=== PATIENT | male | born 1995 | race Caucasian/White ===

== ENCOUNTER 2022-06-25 05:40 | Observation (INO) | payer SELFPAY ==
[~2022-06-25] VITALS: Ht 162.6 cm; Wt 102.1 kg
[2022-06-25] MEDS ORDERED: SODIUM CHLORIDE FLUSH 10 ML SYR IV PRN (05:45)
[2022-06-25 06:11] LABS: BASOPHILS # (AUTO) 0.1 (0.0-0.1); EOSINOPHILS # (AUTO) 0.8 (0.0-0.4); EOSINOPHILS % 6.1 % (0.0-6.0); HEMATOCRIT 46.7 % (38.2-49.6); HEMOGLOBIN 15.8 g/dL (14.0-18.0); LYMPHOCYTES # (AUTO) 3.5 (1.0-3.2); LYMPHOCYTES % 27.6 % (18.0-39.1); MEAN CORPUSCULAR HEMOGLOBIN 30.6 pg (28-32); MEAN CORPUSCULAR HGB CONC 33.8 g/dL (31-35); MEAN CORPUSCULAR VOLUME 90.3 fL (81-99); MONOCYTES % 8.1 % (4.4-11.3); NEUTROPHILS # (AUTO) 7.1 (2.1-6.9); NEUTROPHILS % 56.8 % (38.7-80.0); PLATELET COUNT 318 x10e3/uL (140-360); RED BLOOD COUNT 5.17 x10e6/uL (4.3-5.7); RED CELL DISTRIBUTION WIDTH 12.8 % (11.7-14.4)
[2022-06-25] MEDS ORDERED: ONDANSETRON HCL INJ 2MG/ML 2ML 2 MG/ML VIAL IV STA (06:18)
[2022-06-25 06:27] LABS: CLARITY,URINE CLOUDY (CLEAR); COLOR,URINE YELLOW (YELLOW); KETONES,URINE NEGATIVE (NEGATIVE); LEUKOCYTE ESTERASE ,URINE SMALL (NEGATIVE); NITRITE,URINE NEGATIVE (NEGATIVE); PROTEIN,URINE DIPSTICK TRACE (NEGATIVE)
[2022-06-25 06:28] LABS: AMPHETAMINES SCREEN,URINE NEGATIVE (NEGATIVE); BENZODIAZEPINES SCREEN,URINE NEGATIVE (NEGATIVE); PHENCYCLIDINE SCREEN,URINE NEGATIVE (NEGATIVE); URINE UROBILINOGEN 0.2 mg/dL (0.2 - 1)
[2022-06-25 06:30] LABS: INR 0.88; PROTHROMBIN TIME 12.4 seconds (11.9-14.5)
[2022-06-25] MEDS ORDERED: Morphine 4mg INJECTION 4 MG/ML INJ IV ONE (06:30)
[2022-06-25 06:31] LABS: PARTIAL THROMBOPLASTIN TIME 29.3 seconds (23.8-35.5)
[2022-06-25 06:37] LABS: ALBUMIN 3.9 g/dL (3.5-5.0); ANION GAP 17.8 mmol/L (8-16); CALCIUM 9.3 mg/dL (8.4-10.2); CREATININE, SERUM 0.94 mg/dL (0.72-1.25); POTASSIUM 3.8 mmol/L (3.5-5.1)
[2022-06-25 06:48] LABS: BACTERIA,URINE MANY /HPF; EPITHELIAL CELLS,URINE MANY /LPF; RBC,URINE 0-5 /HPF (0-5); WBC,URINE (MAN) >50 /HPF (0-5)
[2022-06-25] MEDS ORDERED: ONDANSETRON HCL INJ 2MG/ML 2ML 2 MG/ML VIAL ONE (09:05)
[2022-06-25] MEDS ORDERED: NEOSTIGMINE 1 MG/ML 10ML VIAL ONE (09:05)
[2022-06-25] MEDS ORDERED: POVIDONE IODINE 0.05% 0.05 % ML PO ONE (09:05)
[2022-06-25] MEDS ORDERED: SUCCINYLCHOLINE CHLORIDE 20 MG/ML 10ML VIAL ONE (09:05)
[2022-06-25] MEDS ORDERED: DEXAMETHASONE SOD PHOS INJ 4 MG/ML SDV ONE (09:05)
[2022-06-25] MEDS ORDERED: SEVOFLURANE INHAL SOLN 250 ML PEN BTL ONE (09:05)
[2022-06-25] MEDS ORDERED: CEFTRIAXONE 1 GM VIAL IV ONE (10:45)
[2022-06-25] MEDS ORDERED: SODIUM CHLORIDE 0.9% 1000ML 1,000 ML IV SCH (11:30)
[2022-06-25] MEDS: Morphine 2mg Syringe 2 MG/ML SYR IV PRN ×3 (11:55→23:12)
[2022-06-25] MEDS ORDERED: METRONIDAZOLE 500MG/NS 100ML 100 ML IV ONE ×2 (12:00→17:30)
[2022-06-25] MEDS ORDERED: ROCURONIUM BROMIDE 10 MG/ML 5ML VIAL IV ONE (12:37)
[2022-06-25] MEDS ORDERED: ESMOLOL HCL 100MG/10ML 10 MG/ML VIAL ONE (12:37)
[2022-06-25] MEDS ORDERED: LIDOCAINE HCL 2% LOCAL INJ 5 ML SDV VIAL INJ ONE (12:37)
[2022-06-25] MEDS ORDERED: PROPOFOL IV EMULSION 10 MG/ML 20 ML VIAL ONE (12:37)
[2022-06-25] MEDS ORDERED: FENTANYL CITRATE/PF 100MCG/2 ML INJ ONE (13:30)
[2022-06-25] MEDS ORDERED: MIDAZOLAM HCL 2 MG/2 ML VIAL ONE (13:30)
[2022-06-25] MEDS ORDERED: ONDANSETRON HCL INJ 2MG/ML 2ML 2 MG/ML VIAL IV PRN (17:30)
[2022-06-25] MEDS ORDERED: ACETAMINOPHEN 325 MG TAB PO PRN (17:30)
[2022-06-25 19:24] VITALS: BP 139/93
[2022-06-25 19:27] VITALS: BP 139/93
[2022-06-25 19:33] VITALS: BP 139/93
[2022-06-25] MEDS: SODIUM CHLORIDE 0.9% 1000ML 1,000 ML IV SCH (19:46)
[2022-06-25 19:59] VITALS: BP 139/93
[2022-06-25] MEDS: ONDANSETRON HCL INJ 2MG/ML 2ML 2 MG/ML VIAL IV PRN (23:12)
[2022-06-25] MEDS ORDERED: TESTOSTERONE SQ (23:52)
[2022-06-25] MEDS ORDERED: IBUPROFEN200 MG PO (23:53)
[2022-06-26 00:13] VITALS: BP 150/77
[2022-06-26] MEDS: ONDANSETRON HCL INJ 2MG/ML 2ML 2 MG/ML VIAL IV PRN ×2 (05:14→10:12)
[2022-06-26] MEDS: Morphine 2mg Syringe 2 MG/ML SYR IV PRN ×2 (05:17→10:14)
[2022-06-26 05:18] VITALS: BP 121/76
[2022-06-26] MEDS: SODIUM CHLORIDE 0.9% 1000ML 1,000 ML IV SCH ×3 (05:19→21:22)
[2022-06-26 06:08] LABS: BASOPHILS # (AUTO) 0.1 (0.0-0.1); BASOPHILS % 0.4 % (0.0-1.0); EOSINOPHILS # (AUTO) 0.3 (0.0-0.4); EOSINOPHILS % 1.2 % (0.0-6.0); HEMATOCRIT 44.3 % (38.2-49.6); LYMPHOCYTES # (AUTO) 2.3 (1.0-3.2); LYMPHOCYTES % 11.2 % (18.0-39.1); MEAN CORPUSCULAR HEMOGLOBIN 30.2 pg (28-32); MEAN CORPUSCULAR HGB CONC 33.9 g/dL (31-35); MEAN CORPUSCULAR VOLUME 89.3 fL (81-99); MONOCYTES % 9.5 % (4.4-11.3); NEUTROPHILS # (AUTO) 15.9 (2.1-6.9); NEUTROPHILS % 77.3 % (38.7-80.0); PLATELET COUNT 301 x10e3/uL (140-360); RED BLOOD COUNT 4.96 x10e6/uL (4.3-5.7); RED CELL DISTRIBUTION WIDTH 12.9 % (11.7-14.4)
[2022-06-26 06:41] LABS: ALBUMIN 3.4 g/dL (3.5-5.0); ALBUMIN/GLOBULIN RATIO 0.9 (0.8-2.0); ANION GAP 15.5 mmol/L (8-16); CALCIUM 9.2 mg/dL (8.4-10.2); CREATININE, SERUM 0.75 mg/dL (0.72-1.25); POTASSIUM 3.5 mmol/L (3.5-5.1)
[2022-06-26 08:41] VITALS: BP 121/76
[2022-06-26 12:00] VITALS: BP 113/59
[2022-06-26] MEDS ORDERED: BUPIVACAINE 0.25% 30ML SDV ONE (13:04)
[2022-06-26 16:00] VITALS: BP 139/86
[2022-06-26] MEDS: HYDROMORPHONE 1MG/1ML INJ IV PRN ×2 (16:35→21:22)
[2022-06-26 20:00] VITALS: BP 115/67
[2022-06-27] MEDS: HYDROMORPHONE 1MG/1ML INJ IV PRN ×2 (00:22→05:10)
[2022-06-27 04:57] LABS: BASOPHILS % 0.3 % (0.0-1.0); HEMATOCRIT 39.9 % (38.2-49.6); HEMOGLOBIN 13.3 g/dL (14.0-18.0); LYMPHOCYTES # (AUTO) 1.2 (1.0-3.2); LYMPHOCYTES % 8.2 % (18.0-39.1); MEAN CORPUSCULAR HEMOGLOBIN 30.3 pg (28-32); MEAN CORPUSCULAR HGB CONC 33.3 g/dL (31-35); MEAN CORPUSCULAR VOLUME 90.9 fL (81-99); MONOCYTES % 6.8 % (4.4-11.3); NEUTROPHILS # (AUTO) 12.7 (2.1-6.9); NEUTROPHILS % 84.4 % (38.7-80.0); PLATELET COUNT 262 x10e3/uL (140-360); RED BLOOD COUNT 4.39 x10e6/uL (4.3-5.7); RED CELL DISTRIBUTION WIDTH 12.7 % (11.7-14.4)
[2022-06-27] MEDS: SODIUM CHLORIDE 0.9% 1000ML 1,000 ML IV SCH ×2 (05:09→14:30)
[2022-06-27 05:21] LABS: ALBUMIN 2.8 g/dL (3.5-5.0); ALBUMIN/GLOBULIN RATIO 0.8 (0.8-2.0); CALCIUM 8.8 mg/dL (8.4-10.2); CREATININE, SERUM 0.67 mg/dL (0.72-1.25)
[2022-06-27] MEDS: HYDROCODONE/APAP 7.5MG-325MG 1 EA TAB PO PRN ×2 (08:13→12:54)
[2022-06-27 08:15] VITALS: BP 107/67
[2022-06-27 08:31] VITALS: BP 107/67
[2022-06-27 11:37] VITALS: BP 103/56
[2022-06-27] MEDS ORDERED: ONDANSETRON HCL 4 MG ORAL DISINTEGRATING TAB PO PRN (12:30)
[2022-06-27 15:53] VITALS: BP 101/48
== END 2022-06-27 16:03 | disposition home or self-care (01) ==
LOC: ER 05:47 → ERHOLD 11:19 → MED/SURG 19:11
PROVIDERS: ADMIT Internal Medicine; ATTEND Internal Medicine
DX: K80.00 Calculus of gallbladder with acute cholecystitis without obstruction (principal); Z20.822 Contact with and (suspected) exposure to COVID-19
CPT/HCPCS: 0223U; 36415 ×3; 47562; 76705; 80053 ×3; 80307; 81001; 81025; 83690; 85025 ×3; 85610; 85730; 88304; 96361; 99284; C1766; C9113; G0378 ×3; J0330; J0696 ×3; J1100; J1170 ×2; J2001; J2250; J2270 ×3; J2405 ×2; J2704; J2710; J3010; J7030 ×2; 76700